=== PATIENT | male | born 1935 | race Caucasian/White ===

== ENCOUNTER 2017-07-11 14:51 | Inpatient (IN) | payer MEDICARE, MEDICAID ==
[~2017-07-11] VITALS: Ht 175.3 cm; Wt 81.6 kg
[~2017-07-11 14:51] MED LIST: FLOMAX0.4 MG ORAL; LEXAPRO10 MG ORAL; OMEPRAZOLE20 M2 ORAL; Piperacillin/Tazobactam 4.5 GM in NS 110 ML IV STA
[2017-07-11] MEDS ORDERED: NS 1000ml 2,600 ML IVLG ONE (15:00)
[2017-07-11] MEDS ORDERED: Tetanus/Diptheria/Pertussis Vaccine 0.5ml Syr IM ONE (15:00)
[2017-07-11] MEDS ORDERED: Acetaminophen 650 MG SUPP RECTAL ONE (15:00)
[2017-07-11] MEDS ORDERED: Vancomycin 1 GM in NS 275 ML IV ONE (15:00)
[2017-07-11 15:52] VITALS: BP 124/68
--- NOTE | 2017-07-11 15:56 | Emergency Room Report ---
History of Present Illness General Chief Complaint: Altered Level of Consciousness Source: EMS Present Illness HPI Patient was found altered on the streets. Paramedics brought him here. He has some myoclonic jerks. There is no seizure activity. He feels hot to the touch. The patient is unable to answer questions. Old records reviewed - HTN and onycholysis. He has scrapes. Unknown last tetanus. Allergies: Coded Allergies: PENICILLINS (Verified Allergy, Intermediate, Anaphylaxis, 07/12/17) Patient History Limited by: medical condition Past Medical History: see triage record, old chart reviewed Social History: Reports: alcohol use Social History Narrative from streets Reviewed Nursing Documentation: PMH: Agreed, PSxH: Agreed Nursing Documentation-PMH Past Medical History: Deferred Hx Cardiac Problems: No Hx Cancer: No Hx Gastrointestinal Problems: Yes Hx Neurological Problems: No Review of Systems All Other Systems: limited Physical Exam Vital Signs Date Time Temp Pulse Resp B/P (MAP) Pulse Ox O2 Delivery O2 Flow Rate FiO2 07/11/17 14:47 98.1 102 16 152/80 98 Room Air General Appearance: alert - but strange vocalizations, other - dishevelled Eyes: bilateral eye PERRL, bilateral eye Scleral Injection ENT: moist mucus membranes Neck: full range of motion, no bony tend Respiratory: chest non-tender, rhonchi Cardiovascular #1: regular rate, rhythm Cardiovascular #2: 2+ radial (L) Gastrointestinal: normal inspection, non tender, soft, abnormal bowel sounds - decreased Musculoskeletal: back normal, digits/nails normal, normal range of motion Neurologic: responsive, motor strength/tone normal, DTRs symmetric, sensory intact Psychiatric: other - not answering, not anxious but strange vocalization Reflexes: 2+ knee (R), 2+ knee (L) Skin: warm/dry, abrasions Medical Decision Making Diagnostic Impression: Primary Impression: Altered level of consciousness Additional Impressions: Sepsis Qualified Codes: A41.9 - Sepsis, unspecified organism Pneumonia Qualified Codes: J18.1 - Lobar pneumonia, unspecified organism ER Course Patient presents with ALOC and abrasions feeling hot and abnormal lung sounds. Ddx: pneumonia, sepsis, head contusion/bleed, ingestion, underlying psychopathy , electrolyte abnormality. Complex patient needing emergent evaluation with EKG , CXR, CT of head and labs. IV hydration initiated. EKG no LA. CXR with R infiltrate. Labs with normal WBC, some renal insufficiency. Antibiotics begun. CT unremarkable. Patient improved with treatment and observation, however needs admission to hospital for further evaluation and treatment. Admit tele Dr. Rucker. Laboratory Tests Test 07/11/17 15:25 07/11/17 15:35 07/12/17 08:35 White Blood Count 8.9 K/UL (4.8-10.8) 8.0 K/UL (4.8-10.8) Red Blood Count 5.28 M/UL (4.70-6.10) 4.93 M/UL (4.70-6.10) Hemoglobin 16.2 G/DL (14.2-18.0) 15.5 G/DL (14.2-18.0) Hematocrit 48.3 % (42.0-52.0) 45.0 % (42.0-52.0) Mean Corpuscular Volume 91 FL (80-99) 91 FL (80-99) Mean Corpuscular Hemoglobin 30.7 PG (27.0-31.0) 31.4 PG (27.0-31.0) H Mean Corpuscular Hemoglobin Concent 33.6 G/DL (32.0-36.0) 34.4 G/DL (32.0-36.0) Red Cell Distribution Width 12.6 % (11.6-14.8) 12.5 % (11.6-14.8) Platelet Count 212 K/UL (150-450) 186 K/UL (150-450) Mean Platelet Volume 4.8 FL (6.5-10.1) L 4.5 FL (6.5-10.1) L Neutrophils (%) (Auto) 79.0 % (45.0-75.0) H 71.8 % (45.0-75.0) Lymphocytes (%) (Auto) 15.4 % (20.0-45.0) L 21.8 % (20.0-45.0) Monocytes (%) (Auto) 4.5 % (1.0-10.0) 3.8 % (1.0-10.0) Eosinophils (%) (Auto) 0.2 % (0.0-3.0) 1.4 % (0.0-3.0) Basophils (%) (Auto) 1.0 % (0.0-2.0) 1.2 % (0.0-2.0) Prothrombin Time 10.7 SEC (9.30-11.50) 11.4 SEC (9.30-11.50) Prothrombin Time INR 1.0 (0.9-1.1) 1.1 (0.9-1.1) PTT 27 SEC (23-33) 28 SEC (23-33) Sodium Level 137 mEQ/L (135-145) 136 mEQ/L (135-145) Potassium Level 4.1 mEQ/L (3.4-4.9) 3.7 mEQ/L (3.4-4.9) Chloride Level 100 mEQ/L (98-107) 102 mEQ/L (98-107) Carbon Dioxide Level 24 mEQ/L (20-30) 25 mEQ/L (20-30) Anion Gap 13 (5-15) 9 (5-15) Blood Urea Nitrogen 24 mg/dL (7-23) H 18 mg/dL (7-23) Creatinine 1.2 mg/dL (0.7-1.2) 0.9 mg/dL (0.7-1.2) Estimate Glomerular Filtration Rate mL/min (>60) mL/min (>60) Glucose Level 119 mg/dL (74-106) H 89 mg/dL (74-106) Lactic Acid Level 1.60 mmol/L (0.66-2.22) Calcium Level 9.1 mg/dL (8.6-10.2) 8.0 mg/dL (8.6-10.2) L Magnesium Level 1.8 mg/dL (1.7-2.5) Total Bilirubin 1.3 mg/dL (0.0-1.2) H 1.4 mg/dL (0.0-1.2) H Direct Bilirubin 0.2 mg/dL (0.1-0.3) 0.2 mg/dL (0.1-0.3) Aspartate Amino Transferase (AST) 13 U/L (5-40) 16 U/L (5-40) Alanine Aminotransferase (ALT) 7 U/L (3-41) 6 U/L (3-41) Alkaline Phosphatase 45 U/L (40-129) 40 U/L (40-129) Total Creatine Kinase 119 U/L (38-174) Troponin I < 0.30 ng/mL (<=0.30) Pro-B-Type Natriuretic Peptide 247 pg/mL (0-450) Total Protein 7.1 g/dL (6.6-8.7) 5.9 g/dL (6.6-8.7) L Albumin 4.0 g/dL (3.5-5.2) 3.3 g/dL (3.5-5.2) L Globulin 3.1 g/dL 2.6 g/dL Albumin/Globulin Ratio 1.2 (1.0-2.7) 1.2 (1.0-2.7) Lipase 13 U/L (< 60) Urine Color Yellow Urine Appearance Clear Urine pH 6.5 (4.5-8.0) Urine Specific [place] 1.015 (1.005-1.035) Urine Protein 1+ (NEGATIVE) H Urine Glucose (UA) Negative (NEGATIVE) Urine Ketones 3+ (NEGATIVE) H Urine Occult Blood Negative (NEGATIVE) Urine Nitrite Negative (NEGATIVE) Urine Bilirubin Negative (NEGATIVE) Urine Urobilinogen 1 MG/DL (0.0-1.0) H Urine Leukocyte Esterase 1+ (NEGATIVE) H Urine RBC 0-2 /HPF (0 - 0) H Urine WBC 2-4 /HPF (0 - 0) Urine Squamous Epithelial Cells None /LPF (NONE/OCC) Urine Amorphous Sediment Few /LPF (NONE) H Urine Bacteria Few /HPF (NONE) Triglycerides Level 58 mg/dL (< 150) Cholesterol Level 127 mg/dL (< 200) LDL Cholesterol 78 mg/dL (60-99) HDL Cholesterol 37 mg/dL (> 60) Cholesterol/HDL Ratio 3.4 (3.3-4.4) Thyroid Stimulating Hormone (TSH) 0.572 uIU/mL (0.300-4.500) EKG Diagnostic Results Rate: tachycardiac Rhythm: NSR ST Segments: no acute changes Rhythm Strip Diag. Results EP Interpretation: yes Rhythm: no PVC's, no ectopy, other - ST Chest X-Ray Diagnostic Results Chest X-Ray Diagnostic Results : Chest X-Ray Ordered: Yes # of Views/Limited/Complete: 1 View Indication: Other EP Interpretation: Yes Interpretation: no effusion, no pneumothorax, other - bilat infiltrates Status: improved Disposition: ADMITTED INPATIENT Condition: Serious Khalif Burkett M.D. Jul 11, 2017 15:56
[2017-07-11 15:57] LABS: EOSINOPHILS % (AUTO) 0.2 % (0.0-3.0); LYMPHOCYTES % (AUTO) 15.4 % (20.0-45.0); MEAN CORPUSCULAR HEMOGLOBIN 30.7 PG (27.0-31.0); MEAN CORPUSCULAR HGB CONC 33.6 G/DL (32.0-36.0); MEAN CORPUSCULAR VOLUME 91 FL (80-99); MEAN PLATELET VOLUME 4.8 FL (6.5-10.1); MONOCYTES % (AUTO) 4.5 % (1.0-10.0); PLATELET COUNT 212 K/UL (150-450); RED BLOOD COUNT 5.28 M/UL (4.70-6.10); RED CELL DISTRIBUTION WIDTH 12.6 % (11.6-14.8); WHITE BLOOD COUNT 8.9 K/UL (4.8-10.8)
[2017-07-11 15:58] LABS: APPEARANCE,URINE CLEAR; KETONES,URINE 3+ (NEGATIVE); LEUKOCYTE ESTERASE ,URINE 1+ (NEGATIVE); NITRITE,URINE NEGATIVE (NEGATIVE); PH,URINE 6.5 (4.5-8.0); PROTEIN,URINE 1+ (NEGATIVE); UROBILINOGEN,URINE 1 MG/DL (0.0-1.0)
[2017-07-11 16:02] LABS: PROTHROMBIN TIME 10.7 SEC (9.30-11.50)
[2017-07-11 16:07] LABS: ALANINE AMINOTRANSFERASE 7 U/L (3-41); ALBUMIN/GLOBULIN RATIO 1.2 (1.0-2.7); ANION GAP 13 (5-15); ASPARTATE AMINO TRANSFERASE 13 U/L (5-40); CALCIUM 9.1 mg/dL (8.6-10.2); CARBON DIOXIDE 24 mEQ/L (20-30); CHLORIDE 100 mEQ/L (98-107); CREATININE 1.2 mg/dL (0.7-1.2); HEMOLYSIS 13; LIPASE 13 U/L (< 60); MAGNESIUM 1.8 mg/dL (1.7-2.5); POTASSIUM 4.1 mEQ/L (3.4-4.9); SODIUM 137 mEQ/L (135-145); TOTAL PROTEIN 7.1 g/dL (6.6-8.7); TROPONIN I < 0.30 ng/mL (<=0.30)
[2017-07-11 16:15] LABS: AMORPHOUS SEDIMENT,UR FEW /LPF; BACTERIA,URINE FEW /HPF; RBC,URINE 0-2 /HPF (0 - 0)
[2017-07-11 16:28] LABS: BILIRUBIN,DIRECT 0.2 mg/dL (0.1-0.3)
[2017-07-11] MEDS ORDERED: Zosyn 4.5gm inj ONE (17:14)
[2017-07-11] MEDS ORDERED: NKM (17:34)
[2017-07-11] MEDS ORDERED: Nitroglycerin Subl 0.4mg tab (Bottle Of 25) SL PRN (17:45)
[2017-07-11] MEDS ORDERED: Mylanta II UD 30ml ORAL PRN (17:45)
[2017-07-11] MEDS ORDERED: LORazepam Inj 2mg/ml 1ml IV PRN (17:45)
[2017-07-11] MEDS ORDERED: Miralax 17gm pkt ORAL PRN (17:45)
[2017-07-11] MEDS ORDERED: DuoNeb 0.5-3(2.5)mg/3ml neb HHN PRN (17:45)
[2017-07-11] MEDS ORDERED: Morphine Sulfate 2mg/ml Inj IVP PRN (17:45)
[2017-07-11] MEDS ORDERED: Vancomycin 1gm inj IVPB ONE (19:43)
[2017-07-11 20:14] VITALS: BP 103/54
[2017-07-11 22:13] VITALS: BP 107/62
[2017-07-11] MEDS: Heparin 5000 units/ml inj SUBQ SCH (22:46)
[2017-07-12 00:05] VITALS: BP_SYST 101; BP_SYST 116; BP_DIAS 60; BP_DIAS 69
[2017-07-12 04:00] VITALS: BP 113/67
[2017-07-12 08:48] VITALS: BP 117/75
[2017-07-12] MEDS: Tamsulosin 0.4mg cap ORAL SCH (09:07)
[2017-07-12] MEDS: Heparin 5000 units/ml inj SUBQ SCH ×2 (09:10→20:58)
[2017-07-12 09:23] LABS: BASOPHILS % (AUTO) 1.2 % (0.0-2.0); EOSINOPHILS % (AUTO) 1.4 % (0.0-3.0); LYMPHOCYTES % (AUTO) 21.8 % (20.0-45.0); MEAN CORPUSCULAR HEMOGLOBIN 31.4 PG (27.0-31.0); MEAN CORPUSCULAR HGB CONC 34.4 G/DL (32.0-36.0); MEAN CORPUSCULAR VOLUME 91 FL (80-99); MEAN PLATELET VOLUME 4.5 FL (6.5-10.1); MONOCYTES % (AUTO) 3.8 % (1.0-10.0); NEUTROPHILS % (AUTO) 71.8 % (45.0-75.0); PLATELET COUNT 186 K/UL (150-450); RED BLOOD COUNT 4.93 M/UL (4.70-6.10); RED CELL DISTRIBUTION WIDTH 12.5 % (11.6-14.8)
[2017-07-12 09:28] LABS: INR 1.1 (0.9-1.1); PROTHROMBIN TIME 11.4 SEC (9.30-11.50)
[2017-07-12 09:39] LABS: ALANINE AMINOTRANSFERASE 6 U/L (3-41); ALBUMIN/GLOBULIN RATIO 1.2 (1.0-2.7); ANION GAP 9 (5-15); ASPARTATE AMINO TRANSFERASE 16 U/L (5-40); CARBON DIOXIDE 25 mEQ/L (20-30); CHLORIDE 102 mEQ/L (98-107); CHOLESTEROL 127 mg/dL (< 200); CHOLESTEROL/HDL RATIO 3.4 (3.3-4.4); CREATININE 0.9 mg/dL (0.7-1.2); HEMOLYSIS 6; LDL CHOLESTEROL (CALC.) 78 mg/dL (60-99); POTASSIUM 3.7 mEQ/L (3.4-4.9); SODIUM 136 mEQ/L (135-145); TOTAL PROTEIN 5.9 g/dL (6.6-8.7)
[2017-07-12 09:45] LABS: THYROID STIMULATING HORMONE 0.572 uIU/mL (0.300-4.500)
[2017-07-12 09:56] LABS: BILIRUBIN,DIRECT 0.2 mg/dL (0.1-0.3)
--- NOTE | 2017-07-12 10:53 | Diagnostic Imaging Report ---
Indication: Altered level of consciousness Technique: Contiguous 5 mm thick transaxial imaging of the head obtained in a Siemens Sensation [address] scanner. Soft tissue and bone windows generated. Total Dose length Product (DLP): [address] Dose Index Volume (CTDIvol): 70.38, 0.15 mGy Comparison: 12/14/11 Findings: There is mild prominence of the ventricles, basal cisterns, and cerebral sulci consistent with atrophy. Mild, nonspecific, white matter hypoattenuation is noted throughout the brain consistent with chronic small vessel disease. There is no midline shift, edema, acute hemorrhage, mass effect, or abnormal extra-axial fluid collections. Bones and extra osseous soft tissues are unremarkable. Impression: No acute intracranial bleed, mass effect or edema. Mild atrophy of the brain. Nonspecific white matter hypoattenuation probably due to chronic small vessel disease. The CT scanner at [facility] is accredited by the [employer] and the scans are performed using dose optimization techniques as appropriate to a performed exam including Automatic Exposure control.
--- NOTE | 2017-07-12 11:35 | Diagnostic Imaging Report ---
Indication: Dyspnea Comparison: 09/04/15 A single view chest radiograph was obtained. Findings: Heart size is stable. Interstitium of the lung is slightly prominent. Some of this is technical in nature. Bones are osteopenic. Impression: Mild interstitial edema may be present
[2017-07-12 11:54] VITALS: BP 110/54
--- NOTE | 2017-07-12 12:20 | History and Physical ---
History of Present Illness General Date patient seen: Jul 11, 2017 Reason for Hospitalization: Altered Level of Consciousness Present Illness HPI 82 year old male with hx of BPH, depression was found altered on the streets with some myoclonic jerks. The patient is unable to answer questions. The CT of head was negative in ER. He was admitted to telemetry for further work up. Allergies: Coded Allergies: UNABLE TO ASSESS (Unverified , 07/11/17) Uncoded Allergies: PENICILLIN INJECTION (Allergy, Severe, 09/27/13) ANAPHYLACTIC SHOCK Medication History Scheduled Escitalopram Oxalate* (Lexapro*), 5 MG ORAL DAILY, (Reported) No Known Medications* (NKM - No Known Medications*), 0 ., (Reported) Omeprazole (Omeprazole), 20 MG ORAL DAILY, (Reported) Tamsulosin HCl (Flomax), 0.4 MG ORAL DAILY, (Reported) Patient History Healthcare decision maker Resuscitation status Full Code Advanced Directive on File No Past Medical/Surgical History Past Medical/Surgical History: (1) BPH (benign prostatic hyperplasia) (2) Depression (3) ETOH abuse Review of Systems All Other Systems: negative except mentioned in HPI Physical Exam General Appearance: WD/WN Lines, tubes and drains: peripheral HEENT: normocephalic, atraumatic Neck: non-tender, normal alignment Respiratory/Chest: chest wall non-tender, lungs clear Breasts: no masses Cardiovascular/Chest: normal rate Abdomen: normal bowel sounds, non tender Genitourinary/Rectal: normal genital exam, normal rectal exam Extremities: normal range of motion, non-tender Skin Exam: normal pigmentation Last 24 Hour Vital Signs Date Time Temp Pulse Resp B/P (MAP) Pulse Ox O2 Delivery O2 Flow Rate FiO2 07/12/17 11:54 97.0 71 18 110/54 96 Room Air 07/12/17 08:48 97.0 63 18 117/75 95 Room Air 07/12/17 07:49 68 18 Room Air 07/12/17 04:00 67 07/12/17 04:00 98.1 71 20 113/67 99 Room Air 07/12/17 00:34 67 18 Room Air 07/12/17 00:05 97.0 77 20 101/60 94 Room Air 07/12/17 00:00 72 07/11/17 22:13 98.0 69 20 107/62 95 Room Air 07/11/17 20:44 97.6 72 16 103/54 93 Room Air 07/11/17 20:14 97.6 72 16 103/54 93 Room Air 07/11/17 15:52 98.3 98 23 124/68 92 Room Air 07/11/17 14:47 98.1 102 16 152/80 98 Room Air Laboratory Tests Test 07/11/17 15:25 07/11/17 15:35 07/12/17 08:35 White Blood Count 8.9 K/UL (4.8-10.8) 8.0 K/UL (4.8-10.8) Red Blood Count 5.28 M/UL (4.70-6.10) 4.93 M/UL (4.70-6.10) Hemoglobin 16.2 G/DL (14.2-18.0) 15.5 G/DL (14.2-18.0) Hematocrit 48.3 % (42.0-52.0) 45.0 % (42.0-52.0) Mean Corpuscular Volume 91 FL (80-99) 91 FL (80-99) Mean Corpuscular Hemoglobin 30.7 PG (27.0-31.0) 31.4 PG (27.0-31.0) H Mean Corpuscular Hemoglobin Concent 33.6 G/DL (32.0-36.0) 34.4 G/DL (32.0-36.0) Red Cell Distribution Width 12.6 % (11.6-14.8) 12.5 % (11.6-14.8) Platelet Count 212 K/UL (150-450) 186 K/UL (150-450) Mean Platelet Volume 4.8 FL (6.5-10.1) L 4.5 FL (6.5-10.1) L Neutrophils (%) (Auto) 79.0 % (45.0-75.0) H 71.8 % (45.0-75.0) Lymphocytes (%) (Auto) 15.4 % (20.0-45.0) L 21.8 % (20.0-45.0) Monocytes (%) (Auto) 4.5 % (1.0-10.0) 3.8 % (1.0-10.0) Eosinophils (%) (Auto) 0.2 % (0.0-3.0) 1.4 % (0.0-3.0) Basophils (%) (Auto) 1.0 % (0.0-2.0) 1.2 % (0.0-2.0) Prothrombin Time 10.7 SEC (9.30-11.50) 11.4 SEC (9.30-11.50) Prothromb Time International Ratio 1.0 (0.9-1.1) 1.1 (0.9-1.1) Activated Partial Thromboplast Time 27 SEC (23-33) 28 SEC (23-33) Sodium Level 137 mEQ/L (135-145) 136 mEQ/L (135-145) Potassium Level 4.1 mEQ/L (3.4-4.9) 3.7 mEQ/L (3.4-4.9) Chloride Level 100 mEQ/L (98-107) 102 mEQ/L (98-107) Carbon Dioxide Level 24 mEQ/L (20-30) 25 mEQ/L (20-30) Anion Gap 13 (5-15) 9 (5-15) Blood Urea Nitrogen 24 mg/dL (7-23) H 18 mg/dL (7-23) Creatinine 1.2 mg/dL (0.7-1.2) 0.9 mg/dL (0.7-1.2) Estimat Glomerular Filtration Rate mL/min (>60) mL/min (>60) Glucose Level 119 mg/dL (74-106) H 89 mg/dL (74-106) Lactic Acid Level 1.60 mmol/L (0.66-2.22) Calcium Level 9.1 mg/dL (8.6-10.2) 8.0 mg/dL (8.6-10.2) L Magnesium Level 1.8 mg/dL (1.7-2.5) Total Bilirubin 1.3 mg/dL (0.0-1.2) H 1.4 mg/dL (0.0-1.2) H Direct Bilirubin 0.2 mg/dL (0.1-0.3) 0.2 mg/dL (0.1-0.3) Aspartate Amino Transf (AST/SGOT) 13 U/L (5-40) 16 U/L (5-40) Alanine Aminotransferase (ALT/SGPT) 7 U/L (3-41) 6 U/L (3-41) Alkaline Phosphatase 45 U/L (40-129) 40 U/L (40-129) Total Creatine Kinase 119 U/L (38-174) Troponin I < 0.30 ng/mL (<=0.30) Pro-B-Type Natriuretic Peptide 247 pg/mL (0-450) Total Protein 7.1 g/dL (6.6-8.7) 5.9 g/dL (6.6-8.7) L Albumin 4.0 g/dL (3.5-5.2) 3.3 g/dL (3.5-5.2) L Globulin 3.1 g/dL 2.6 g/dL Albumin/Globulin Ratio 1.2 (1.0-2.7) 1.2 (1.0-2.7) Lipase 13 U/L (< 60) Urine Color Yellow Urine Appearance Clear Urine pH 6.5 (4.5-8.0) Urine Specific [place] 1.015 (1.005-1.035) Urine Protein 1+ (NEGATIVE) H Urine Glucose (UA) Negative (NEGATIVE) Urine Ketones 3+ (NEGATIVE) H Urine Occult Blood Negative (NEGATIVE) Urine Nitrite Negative (NEGATIVE) Urine Bilirubin Negative (NEGATIVE) Urine Urobilinogen 1 MG/DL (0.0-1.0) H Urine Leukocyte Esterase 1+ (NEGATIVE) H Urine RBC 0-2 /HPF (0 - 0) H Urine WBC 2-4 /HPF (0 - 0) Urine Squamous Epithelial Cells None /LPF (NONE/OCC) Urine Amorphous Sediment Few /LPF (NONE) H Urine Bacteria Few /HPF (NONE) Triglycerides Level 58 mg/dL (< 150) Cholesterol Level 127 mg/dL (< 200) LDL Cholesterol 78 mg/dL (60-99) HDL Cholesterol 37 mg/dL (> 60) Cholesterol/HDL Ratio 3.4 (3.3-4.4) Thyroid Stimulating Hormone (TSH) 0.572 uIU/mL (0.300-4.500) Height (Feet): 5 Height (Inches): 9.00 Weight (Pounds): 180 Medications Current Medications Medications (Trade) Dose Ordered Sig/Percy Route PRN Reason Start Time Stop Time Status Last Admin Dose Admin Acetaminophen (Tylenol) 650 mg Q4H PRN ORAL fever 07/11/17 17:45 08/10/17 17:44 Al Hydroxide/Mg Hydroxide (Mylanta II) 30 ml Q6H PRN ORAL dyspepsia 07/11/17 17:45 08/10/17 17:44 Albuterol/ Ipratropium (DuoNeb 0.5-3(2.5)mg/3ml) 3 ml Q4H PRN HHN Shortness of Breath 07/11/17 17:45 07/16/17 17:44 Clonidine HCl (Catapres) 0.1 mg Q4H PRN ORAL For High Blood Pressure 07/11/17 17:45 08/10/17 17:44 Dextrose (Dextrose 50%) STAT PRN IV Hypoglycemia 07/11/17 17:45 08/10/17 17:44 Escitalopram Oxalate (Lexapro) 5 mg DAILY ORAL 07/12/17 09:00 08/11/17 08:59 07/12/17 09:07 Heparin Sodium (Porcine) (Heparin 5000 units/ml) 5,000 units EVERY 12 HOURS SUBQ 07/11/17 21:00 08/10/17 20:59 07/12/17 09:10 Lorazepam (Ativan 2mg/ml 1ml) 0.5 mg Q4H PRN IV For Anxiety 07/11/17 17:45 07/18/17 17:44 Morphine Sulfate (Morphine Sulfate) 1 mg Q4H PRN IVP For Pain 7-10 07/11/17 17:45 07/18/17 17:44 Nitroglycerin (Ntg) 0.4 mg Q5M X 3 DOSES PRN SL Prn Chest Pain 07/11/17 17:45 08/10/17 17:44 Ondansetron HCl (Zofran) 4 mg Q6H PRN IVP Nausea & Vomiting 07/11/17 17:45 08/10/17 17:44 Polyethylene Glycol (Miralax) 17 gm HSPRN PRN ORAL Constipation 07/11/17 17:45 08/10/17 17:44 Tamsulosin HCl (Flomax) 0.4 mg DAILY ORAL 07/12/17 09:00 08/11/17 08:59 07/12/17 09:07 Temazepam (Restoril) 15 mg HSPRN PRN ORAL Insomnia 07/11/17 17:45 07/18/17 17:44 Assessment/Plan Problem List: (1) Acute encephalopathy ICD Codes: G93.40 - Encephalopathy, unspecified SNOMED: 3568786 (2) Depression ICD Codes: F32.9 - Major depressive disorder, single episode, unspecified SNOMED: 99522549 (3) BPH (benign prostatic hyperplasia) ICD Codes: N40.0 - Benign prostatic hyperplasia without lower urinary tract symptoms SNOMED: 737059204, 989900133 (4) ETOH abuse ICD Codes: F10.10 - Alcohol abuse, uncomplicated SNOMED: 92900908 Assessment/Plan telemetry admission neuro evaluation psych evaluation toxicology screening cardiac evaluation MONTSE SCHWARZ Jul 12, 2017 12:20
--- NOTE | 2017-07-12 12:24 | Pulmonology Progress Note ---
Assessment/Plan Problems: (1) Acute encephalopathy (2) Depression (3) BPH (benign prostatic hyperplasia) (4) ETOH abuse Assessment/Plan doing better more awake awaiting echo and doppler of carotid artery drug screen Subjective ROS Limited/Unobtainable: No Constitutional: Reports: no symptoms HEENT: Repors: no symptoms Respiratory: Reports: no symptoms Cardiovascular: Reports: no symptoms Gastrointestinal/Abdominal: Reports: no symptoms Allergies: Coded Allergies: UNABLE TO ASSESS (Unverified , 07/11/17) Uncoded Allergies: PENICILLIN INJECTION (Allergy, Severe, 09/27/13) ANAPHYLACTIC SHOCK Objective Last 24 Hour Vital Signs Date Time Temp Pulse Resp B/P (MAP) Pulse Ox O2 Delivery O2 Flow Rate FiO2 07/12/17 11:54 97.0 71 18 110/54 96 Room Air 07/12/17 08:48 97.0 63 18 117/75 95 Room Air 07/12/17 07:49 68 18 Room Air 07/12/17 04:00 67 07/12/17 04:00 98.1 71 20 113/67 99 Room Air 07/12/17 00:34 67 18 Room Air 07/12/17 00:05 97.0 77 20 101/60 94 Room Air 07/12/17 00:00 72 07/11/17 22:13 98.0 69 20 107/62 95 Room Air 07/11/17 20:44 97.6 72 16 103/54 93 Room Air 07/11/17 20:14 97.6 72 16 103/54 93 Room Air 07/11/17 15:52 98.3 98 23 124/68 92 Room Air 07/11/17 14:47 98.1 102 16 152/80 98 Room Air General Appearance: WD/WN HEENT: normocephalic, atraumatic Respiratory/Chest: chest wall non-tender, lungs clear, normal breath sounds Cardiovascular: normal peripheral pulses, normal rate Abdomen: normal bowel sounds, soft, non tender, no organomegaly Genitourinary: normal external genitalia Skin: no rash Neurologic/Psychiatric: no motor/sensory deficits, abnormal gait, normal mood/ affect Lymphatic: no groin adenopathy Musculoskeletal: normal muscle bulk Laboratory Tests 07/11/17 15:25: White Blood Count 8.9, Red Blood Count 5.28, Hemoglobin 16.2, Hematocrit 48.3, Mean Corpuscular Volume 91, Mean Corpuscular Hemoglobin 30.7, Mean Corpuscular Hemoglobin Concent 33.6, Red Cell Distribution Width 12.6, Platelet Count 212, Mean Platelet Volume 4.8L, Neutrophils (%) (Auto) 79.0H, Lymphocytes (%) (Auto) 15.4L, Monocytes (%) (Auto) 4.5, Eosinophils (%) (Auto) 0.2, Basophils (%) (Auto ) 1.0, Prothrombin Time 10.7, Prothromb Time International Ratio 1.0, Activated Partial Thromboplast Time 27, Sodium Level 137, Potassium Level 4.1, Chloride Level 100, Carbon Dioxide Level 24, Anion Gap 13, Blood Urea Nitrogen 24H, Creatinine 1.2, Estimat Glomerular Filtration Rate , Glucose Level 119H, Lactic Acid Level 1.60, Calcium Level 9.1, Magnesium Level 1.8, Total Bilirubin 1.3H, Direct Bilirubin 0.2, Aspartate Amino Transf (AST/SGOT) 13, Alanine Aminotransferase (ALT/SGPT) 7, Alkaline Phosphatase 45, Total Creatine Kinase 119, Troponin I < 0.30, Pro-B-Type Natriuretic Peptide 247, Total Protein 7.1, Albumin 4.0, Globulin 3.1, Albumin/Globulin Ratio 1.2, Lipase 13 07/11/17 15:35: Urine Color Yellow, Urine Appearance Clear, Urine pH 6.5, Urine Specific [place] 1.015, Urine Protein 1+H, Urine Glucose (UA) Negative, Urine Ketones 3+H , Urine Occult Blood Negative, Urine Nitrite Negative, Urine Bilirubin Negative , Urine Urobilinogen 1H, Urine Leukocyte Esterase 1+H, Urine RBC 0-2H, Urine WBC 2-4, Urine Squamous Epithelial Cells None, Urine Amorphous Sediment FewH, Urine Bacteria Few 07/12/17 08:35: White Blood Count 8.0, Red Blood Count 4.93, Hemoglobin 15.5, Hematocrit 45.0, Mean Corpuscular Volume 91, Mean Corpuscular Hemoglobin 31.4H, Mean Corpuscular Hemoglobin Concent 34.4, Red Cell Distribution Width 12.5, Platelet Count 186, Mean Platelet Volume 4.5L, Neutrophils (%) (Auto) 71.8, Lymphocytes (%) (Auto) 21.8, Monocytes (%) (Auto) 3.8, Eosinophils (%) (Auto) 1.4, Basophils (%) (Auto ) 1.2, Prothrombin Time 11.4, Prothromb Time International Ratio 1.1, Activated Partial Thromboplast Time 28, Sodium Level 136, Potassium Level 3.7, Chloride Level 102, Carbon Dioxide Level 25, Anion Gap 9, Blood Urea Nitrogen 18, Creatinine 0.9, Estimat Glomerular Filtration Rate , Glucose Level 89, Calcium Level 8.0L, Total Bilirubin 1.4H, Direct Bilirubin 0.2, Aspartate Amino Transf ( AST/SGOT) 16, Alanine Aminotransferase (ALT/SGPT) 6, Alkaline Phosphatase 40, Total Protein 5.9L, Albumin 3.3L, Globulin 2.6, Albumin/Globulin Ratio 1.2, Triglycerides Level 58, Cholesterol Level 127, LDL Cholesterol 78, HDL Cholesterol 37, Cholesterol/HDL Ratio 3.4, Thyroid Stimulating Hormone (TSH) 0.572 Current Medications Medications (Trade) Dose Ordered Sig/Percy Route PRN Reason Start Time Stop Time Status Last Admin Dose Admin Acetaminophen (Tylenol) 650 mg Q4H PRN ORAL fever 07/11/17 17:45 08/10/17 17:44 Al Hydroxide/Mg Hydroxide (Mylanta II) 30 ml Q6H PRN ORAL dyspepsia 07/11/17 17:45 08/10/17 17:44 Albuterol/ Ipratropium (DuoNeb 0.5-3(2.5)mg/3ml) 3 ml Q4H PRN HHN Shortness of Breath 07/11/17 17:45 07/16/17 17:44 Clonidine HCl (Catapres) 0.1 mg Q4H PRN ORAL For High Blood Pressure 07/11/17 17:45 08/10/17 17:44 Dextrose (Dextrose 50%) STAT PRN IV Hypoglycemia 07/11/17 17:45 08/10/17 17:44 Escitalopram Oxalate (Lexapro) 5 mg DAILY ORAL 07/12/17 09:00 08/11/17 08:59 07/12/17 09:07 Heparin Sodium (Porcine) (Heparin 5000 units/ml) 5,000 units EVERY 12 HOURS SUBQ 07/11/17 21:00 08/10/17 20:59 07/12/17 09:10 Lorazepam (Ativan 2mg/ml 1ml) 0.5 mg Q4H PRN IV For Anxiety 07/11/17 17:45 07/18/17 17:44 Morphine Sulfate (Morphine Sulfate) 1 mg Q4H PRN IVP For Pain 7-10 07/11/17 17:45 07/18/17 17:44 Nitroglycerin (Ntg) 0.4 mg Q5M X 3 DOSES PRN SL Prn Chest Pain 07/11/17 17:45 08/10/17 17:44 Ondansetron HCl (Zofran) 4 mg Q6H PRN IVP Nausea & Vomiting 07/11/17 17:45 08/10/17 17:44 Polyethylene Glycol (Miralax) 17 gm HSPRN PRN ORAL Constipation 07/11/17 17:45 08/10/17 17:44 Tamsulosin HCl (Flomax) 0.4 mg DAILY ORAL 07/12/17 09:00 08/11/17 08:59 07/12/17 09:07 Temazepam (Restoril) 15 mg HSPRN PRN ORAL Insomnia 07/11/17 17:45 07/18/17 17:44 MONTSE SCHWARZ Jul 12, 2017 12:24
[2017-07-12 15:47] VITALS: BP 103/56
--- NOTE | 2017-07-12 16:32 | Consultation ---
History of Present Illness General Date patient seen: Jul 11, 2017 Chief Complaint: Altered Level of Consciousness Present Illness HPI 82 year old male with hx of BPH, depression was found altered on the streets with some myoclonic. the pt was alert however confused and was unable to provide hx. 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 Allergies: Coded Allergies: PENICILLINS (Verified Allergy, Intermediate, Anaphylaxis, 07/12/17) Medication History Scheduled Escitalopram Oxalate* (Lexapro*), 5 MG ORAL DAILY, (Reported) No Known Medications* (NKM - No Known Medications*), 0 ., (Reported) Omeprazole (Omeprazole), 20 MG ORAL DAILY, (Reported) Tamsulosin HCl (Flomax), 0.4 MG ORAL DAILY, (Reported) Patient History History Provided By: Patient, Medical Record, PMD Healthcare decision maker Resuscitation status Full Code Advanced Directive on File No Past Medical/Surgical History Past Medical/Surgical History: (1) Pneumonia (2) Sepsis (3) Depression (4) BPH (benign prostatic hyperplasia) (5) Altered level of consciousness (6) Acute encephalopathy Review of Systems Psychiatric: Reports: prior hx, anxiety, depressed feelings, emotional problems Physical Exam General Appearance: no apparent distress, alert, confused, thin Neurologic: alert, responsive, depressed affect Last 24 Hour Vital Signs Date Time Temp Pulse Resp B/P (MAP) Pulse Ox O2 Delivery O2 Flow Rate FiO2 07/12/17 15:47 97.2 65 18 103/56 98 Room Air 07/12/17 12:00 75 07/12/17 11:54 97.0 71 18 110/54 96 Room Air 07/12/17 08:48 97.0 63 18 117/75 95 Room Air 07/12/17 07:49 68 18 Room Air 07/12/17 04:00 67 07/12/17 04:00 98.1 71 20 113/67 99 Room Air 07/12/17 00:34 67 18 Room Air 07/12/17 00:05 97.0 77 20 101/60 94 Room Air 07/12/17 00:00 72 07/11/17 22:13 98.0 69 20 107/62 95 Room Air 07/11/17 20:44 97.6 72 16 103/54 93 Room Air 07/11/17 20:14 97.6 72 16 103/54 93 Room Air Intake and Output 07/12/17 07/13/17 19:00 07:00 Intake Total 240 ml Balance 240 ml Intake Oral 240 ml # Voids 2 Laboratory Tests Test 07/12/17 08:35 White Blood Count 8.0 K/UL (4.8-10.8) Red Blood Count 4.93 M/UL (4.70-6.10) Hemoglobin 15.5 G/DL (14.2-18.0) Hematocrit 45.0 % (42.0-52.0) Mean Corpuscular Volume 91 FL (80-99) Mean Corpuscular Hemoglobin 31.4 PG (27.0-31.0) H Mean Corpuscular Hemoglobin Concent 34.4 G/DL (32.0-36.0) Red Cell Distribution Width 12.5 % (11.6-14.8) Platelet Count 186 K/UL (150-450) Mean Platelet Volume 4.5 FL (6.5-10.1) L Neutrophils (%) (Auto) 71.8 % (45.0-75.0) Lymphocytes (%) (Auto) 21.8 % (20.0-45.0) Monocytes (%) (Auto) 3.8 % (1.0-10.0) Eosinophils (%) (Auto) 1.4 % (0.0-3.0) Basophils (%) (Auto) 1.2 % (0.0-2.0) Prothrombin Time 11.4 SEC (9.30-11.50) Prothromb Time International Ratio 1.1 (0.9-1.1) Activated Partial Thromboplast Time 28 SEC (23-33) Sodium Level 136 mEQ/L (135-145) Potassium Level 3.7 mEQ/L (3.4-4.9) Chloride Level 102 mEQ/L (98-107) Carbon Dioxide Level 25 mEQ/L (20-30) Anion Gap 9 (5-15) Blood Urea Nitrogen 18 mg/dL (7-23) Creatinine 0.9 mg/dL (0.7-1.2) Estimat Glomerular Filtration Rate mL/min (>60) Glucose Level 89 mg/dL (74-106) Calcium Level 8.0 mg/dL (8.6-10.2) L Total Bilirubin 1.4 mg/dL (0.0-1.2) H Direct Bilirubin 0.2 mg/dL (0.1-0.3) Aspartate Amino Transf (AST/SGOT) 16 U/L (5-40) Alanine Aminotransferase (ALT/SGPT) 6 U/L (3-41) Alkaline Phosphatase 40 U/L (40-129) Total Protein 5.9 g/dL (6.6-8.7) L Albumin 3.3 g/dL (3.5-5.2) L Globulin 2.6 g/dL Albumin/Globulin Ratio 1.2 (1.0-2.7) Triglycerides Level 58 mg/dL (< 150) Cholesterol Level 127 mg/dL (< 200) LDL Cholesterol 78 mg/dL (60-99) HDL Cholesterol 37 mg/dL (> 60) Cholesterol/HDL Ratio 3.4 (3.3-4.4) Thyroid Stimulating Hormone (TSH) 0.572 uIU/mL (0.300-4.500) Height (Feet): 5 Height (Inches): 9.00 Weight (Pounds): 180 Medications Current Medications Medications (Trade) Dose Ordered Sig/Percy Route PRN Reason Start Time Stop Time Status Last Admin Dose Admin Acetaminophen (Tylenol) 650 mg Q4H PRN ORAL fever 07/11/17 17:45 08/10/17 17:44 Al Hydroxide/Mg Hydroxide (Mylanta II) 30 ml Q6H PRN ORAL dyspepsia 07/11/17 17:45 08/10/17 17:44 Albuterol/ Ipratropium (DuoNeb 0.5-3(2.5)mg/3ml) 3 ml Q4H PRN HHN Shortness of Breath 07/11/17 17:45 07/16/17 17:44 Clonidine HCl (Catapres) 0.1 mg Q4H PRN ORAL For High Blood Pressure 07/11/17 17:45 08/10/17 17:44 Dextrose (Dextrose 50%) STAT PRN IV Hypoglycemia 07/11/17 17:45 08/10/17 17:44 Escitalopram Oxalate (Lexapro) 5 mg DAILY ORAL 07/12/17 09:00 08/11/17 08:59 07/12/17 09:07 Heparin Sodium (Porcine) (Heparin 5000 units/ml) 5,000 units EVERY 12 HOURS SUBQ 9/4/17 21:00 08/10/17 20:59 07/12/17 09:10 Lorazepam (Ativan 2mg/ml 1ml) 0.5 mg Q4H PRN IV For Anxiety 07/11/17 17:45 07/18/17 17:44 Morphine Sulfate (Morphine Sulfate) 1 mg Q4H PRN IVP For Pain 7-10 07/11/17 17:45 07/18/17 17:44 Nitroglycerin (Ntg) 0.4 mg Q5M X 3 DOSES PRN SL Prn Chest Pain 07/11/17 17:45 08/10/17 17:44 Ondansetron HCl (Zofran) 4 mg Q6H PRN IVP Nausea & Vomiting 07/11/17 17:45 08/10/17 17:44 Polyethylene Glycol (Miralax) 17 gm HSPRN PRN ORAL Constipation 07/11/17 17:45 08/10/17 17:44 Tamsulosin HCl (Flomax) 0.4 mg DAILY ORAL 07/12/17 09:00 08/11/17 08:59 07/12/17 09:07 Temazepam (Restoril) 15 mg HSPRN PRN ORAL Insomnia 07/11/17 17:45 07/18/17 17:44 Assessment/Plan Status: stable, progressing Assessment/Plan mdd, hx of alcohol? r/o delirium -lexapro 10mg Claudia Regalado M.D. Jul 12, 2017 16:32
--- NOTE | 2017-07-12 16:40 | Geriatric Progress Note ---
Assessment/Plan Assessment/Plan mdd, dementia -lexapro 10mg qam Subjective Mood/Memory: Reports: prior hx, anxiety, depressed feelings, emotional problems Geriatric Geriatric Last 24 Hour Vital Signs Date Time Temp Pulse Resp B/P (MAP) Pulse Ox O2 Delivery O2 Flow Rate FiO2 07/12/17 15:47 97.2 65 18 103/56 98 Room Air 07/12/17 12:00 75 07/12/17 11:54 97.0 71 18 110/54 96 Room Air 07/12/17 08:48 97.0 63 18 117/75 95 Room Air 07/12/17 07:49 68 18 Room Air 07/12/17 04:00 67 07/12/17 04:00 98.1 71 20 113/67 99 Room Air 07/12/17 00:34 67 18 Room Air 07/12/17 00:05 97.0 77 20 101/60 94 Room Air 07/12/17 00:00 72 07/11/17 22:13 98.0 69 20 107/62 95 Room Air 07/11/17 20:44 97.6 72 16 103/54 93 Room Air 07/11/17 20:14 97.6 72 16 103/54 93 Room Air Intake and Output 07/12/17 07/13/17 19:00 07:00 Intake Total 240 ml Balance 240 ml Intake Oral 240 ml # Voids 2 Laboratory Tests Test 07/12/17 08:35 White Blood Count 8.0 K/UL (4.8-10.8) Red Blood Count 4.93 M/UL (4.70-6.10) Hemoglobin 15.5 G/DL (14.2-18.0) Hematocrit 45.0 % (42.0-52.0) Mean Corpuscular Volume 91 FL (80-99) Mean Corpuscular Hemoglobin 31.4 PG (27.0-31.0) H Mean Corpuscular Hemoglobin Concent 34.4 G/DL (32.0-36.0) Red Cell Distribution Width 12.5 % (11.6-14.8) Platelet Count 186 K/UL (150-450) Mean Platelet Volume 4.5 FL (6.5-10.1) L Neutrophils (%) (Auto) 71.8 % (45.0-75.0) Lymphocytes (%) (Auto) 21.8 % (20.0-45.0) Monocytes (%) (Auto) 3.8 % (1.0-10.0) Eosinophils (%) (Auto) 1.4 % (0.0-3.0) Basophils (%) (Auto) 1.2 % (0.0-2.0) Prothrombin Time 11.4 SEC (9.30-11.50) Prothromb Time International Ratio 1.1 (0.9-1.1) Activated Partial Thromboplast Time 28 SEC (23-33) Sodium Level 136 mEQ/L (135-145) Potassium Level 3.7 mEQ/L (3.4-4.9) Chloride Level 102 mEQ/L (98-107) Carbon Dioxide Level 25 mEQ/L (20-30) Anion Gap 9 (5-15) Blood Urea Nitrogen 18 mg/dL (7-23) Creatinine 0.9 mg/dL (0.7-1.2) Estimat Glomerular Filtration Rate mL/min (>60) Glucose Level 89 mg/dL (74-106) Calcium Level 8.0 mg/dL (8.6-10.2) L Total Bilirubin 1.4 mg/dL (0.0-1.2) H Direct Bilirubin 0.2 mg/dL (0.1-0.3) Aspartate Amino Transf (AST/SGOT) 16 U/L (5-40) Alanine Aminotransferase (ALT/SGPT) 6 U/L (3-41) Alkaline Phosphatase 40 U/L (40-129) Total Protein 5.9 g/dL (6.6-8.7) L Albumin 3.3 g/dL (3.5-5.2) L Globulin 2.6 g/dL Albumin/Globulin Ratio 1.2 (1.0-2.7) Triglycerides Level 58 mg/dL (< 150) Cholesterol Level 127 mg/dL (< 200) LDL Cholesterol 78 mg/dL (60-99) HDL Cholesterol 37 mg/dL (> 60) Cholesterol/HDL Ratio 3.4 (3.3-4.4) Thyroid Stimulating Hormone (TSH) 0.572 uIU/mL (0.300-4.500) Current Medications Medications (Trade) Dose Ordered Sig/Percy Route PRN Reason Start Time Stop Time Status Last Admin Dose Admin Acetaminophen (Tylenol) 650 mg Q4H PRN ORAL fever 07/11/17 17:45 08/10/17 17:44 Al Hydroxide/Mg Hydroxide (Mylanta II) 30 ml Q6H PRN ORAL dyspepsia 07/11/17 17:45 08/10/17 17:44 Albuterol/ Ipratropium (DuoNeb 0.5-3(2.5)mg/3ml) 3 ml Q4H PRN HHN Shortness of Breath 07/11/17 17:45 07/16/17 17:44 Clonidine HCl (Catapres) 0.1 mg Q4H PRN ORAL For High Blood Pressure 07/11/17 17:45 08/10/17 17:44 Dextrose (Dextrose 50%) STAT PRN IV Hypoglycemia 07/11/17 17:45 08/10/17 17:44 Escitalopram Oxalate (Lexapro) 5 mg DAILY ORAL 07/12/17 09:00 08/11/17 08:59 07/12/17 09:07 Heparin Sodium (Porcine) (Heparin 5000 units/ml) 5,000 units EVERY 12 HOURS SUBQ 07/11/17 21:00 08/10/17 20:59 07/12/17 09:10 Lorazepam (Ativan 2mg/ml 1ml) 0.5 mg Q4H PRN IV For Anxiety 07/11/17 17:45 07/18/17 17:44 Morphine Sulfate (Morphine Sulfate) 1 mg Q4H PRN IVP For Pain 7-10 07/11/17 17:45 07/18/17 17:44 Nitroglycerin (Ntg) 0.4 mg Q5M X 3 DOSES PRN SL Prn Chest Pain 07/11/17 17:45 08/10/17 17:44 Ondansetron HCl (Zofran) 4 mg Q6H PRN IVP Nausea & Vomiting 07/11/17 17:45 08/10/17 17:44 Polyethylene Glycol (Miralax) 17 gm HSPRN PRN ORAL Constipation 07/11/17 17:45 08/10/17 17:44 Tamsulosin HCl (Flomax) 0.4 mg DAILY ORAL 07/12/17 09:00 08/11/17 08:59 07/12/17 09:07 Temazepam (Restoril) 15 mg HSPRN PRN ORAL Insomnia 07/11/17 17:45 07/18/17 17:44 Height (Feet): 5 Height (Inches): 9.00 Weight (Pounds): 180 General Appearance: well appearing, alert, appears stated age Neurologic: alert, oriented x3, responsive Psychiatric: depressed affect, anxious Psychiatric Behavior: cooperative Language/Speech: intact Orientation: person, disoriented Affect: appropriate Insight: poor Memory: remote Claudia Leija M.D. Jul 12, 2017 16:40
--- NOTE | 2017-07-12 16:55 | Cardiology Progress Note ---
Assessment/Plan Assessment/Plan [id number] Objective Last 24 Hour Vital Signs Date Time Temp Pulse Resp B/P (MAP) Pulse Ox O2 Delivery O2 Flow Rate FiO2 07/12/17 15:47 97.2 65 18 103/56 98 Room Air 07/12/17 12:00 75 07/12/17 11:54 97.0 71 18 110/54 96 Room Air 07/12/17 08:48 97.0 63 18 117/75 95 Room Air 07/12/17 07:49 68 18 Room Air 07/12/17 04:00 67 07/12/17 04:00 98.1 71 20 113/67 99 Room Air 07/12/17 00:34 67 18 Room Air 07/12/17 00:05 97.0 77 20 101/60 94 Room Air 07/12/17 00:00 72 07/11/17 22:13 98.0 69 20 107/62 95 Room Air 07/11/17 20:44 97.6 72 16 103/54 93 Room Air 07/11/17 20:14 97.6 72 16 103/54 93 Room Air Intake and Output 07/12/17 07/13/17 19:00 07:00 Intake Total 240 ml Balance 240 ml Intake Oral 240 ml # Voids 2 Laboratory Tests Test 07/12/17 08:35 White Blood Count 8.0 K/UL (4.8-10.8) Red Blood Count 4.93 M/UL (4.70-6.10) Hemoglobin 15.5 G/DL (14.2-18.0) Hematocrit 45.0 % (42.0-52.0) Mean Corpuscular Volume 91 FL (80-99) Mean Corpuscular Hemoglobin 31.4 PG (27.0-31.0) H Mean Corpuscular Hemoglobin Concent 34.4 G/DL (32.0-36.0) Red Cell Distribution Width 12.5 % (11.6-14.8) Platelet Count 186 K/UL (150-450) Mean Platelet Volume 4.5 FL (6.5-10.1) L Neutrophils (%) (Auto) 71.8 % (45.0-75.0) Lymphocytes (%) (Auto) 21.8 % (20.0-45.0) Monocytes (%) (Auto) 3.8 % (1.0-10.0) Eosinophils (%) (Auto) 1.4 % (0.0-3.0) Basophils (%) (Auto) 1.2 % (0.0-2.0) Prothrombin Time 11.4 SEC (9.30-11.50) Prothromb Time International Ratio 1.1 (0.9-1.1) Activated Partial Thromboplast Time 28 SEC (23-33) Sodium Level 136 mEQ/L (135-145) Potassium Level 3.7 mEQ/L (3.4-4.9) Chloride Level 102 mEQ/L (98-107) Carbon Dioxide Level 25 mEQ/L (20-30) Anion Gap 9 (5-15) Blood Urea Nitrogen 18 mg/dL (7-23) Creatinine 0.9 mg/dL (0.7-1.2) Estimat Glomerular Filtration Rate mL/min (>60) Glucose Level 89 mg/dL (74-106) Calcium Level 8.0 mg/dL (8.6-10.2) L Total Bilirubin 1.4 mg/dL (0.0-1.2) H Direct Bilirubin 0.2 mg/dL (0.1-0.3) Aspartate Amino Transf (AST/SGOT) 16 U/L (5-40) Alanine Aminotransferase (ALT/SGPT) 6 U/L (3-41) Alkaline Phosphatase 40 U/L (40-129) Total Protein 5.9 g/dL (6.6-8.7) L Albumin 3.3 g/dL (3.5-5.2) L Globulin 2.6 g/dL Albumin/Globulin Ratio 1.2 (1.0-2.7) Triglycerides Level 58 mg/dL (< 150) Cholesterol Level 127 mg/dL (< 200) LDL Cholesterol 78 mg/dL (60-99) HDL Cholesterol 37 mg/dL (> 60) Cholesterol/HDL Ratio 3.4 (3.3-4.4) Thyroid Stimulating Hormone (TSH) 0.572 uIU/mL (0.300-4.500) ANGELY SYKES Jul 12, 2017 16:55
--- NOTE | 2017-07-12 18:26 | Cardiology Report ---
APPROVED REPORT EXAM: Two-dimensional and M-mode echocardiogram with Doppler and color Doppler. INDICATION Left ventricular function M-Mode DIMENSIONS IVSd0.8 (0.7-1.1cm)Left Atrium (MM)4.6 (1.6-4.0cm) LVDd5.2 (3.5-5.6cm)Aortic Root3.3 (2.0-3.7cm) PWd1.0 (0.7-1.1cm)Aortic Cusp Exc.2.0 (1.5-2.0cm) LVDs3.2 (2.5-4.0cm) PWs1.0 cm Normal left ventricular chamber size, systolic function and wall motion. Left ventricular ejection fraction estimated to be 65-70%. No evidence of left ventricular hypertrophy. No evidence of pericardial fat or effusion. All other cardiac chamber sizes are within normal limits. Focal aortic valve sclerosis with adequate cusp excursion Thickened mitral valve leaflets with normal excursion. Mitral annulus and aortic root calcification. Pulmonic valve not well visualized. Normal tricuspid valve structure. IVC dilated at 2.5cm with physiological collapse. RA pressure of 10mmHg. A color flow and spectral Doppler study was performed and revealed: No aortic regurgitation. No mitral regurgitation. Left ventricular diastolic dysfunction grade 1. No tricuspid regurgitation.
[2017-07-12 20:00] VITALS: BP 109/56
--- NOTE | 2017-07-12 21:51 | Wound Care Consultation ---
Wound Assessment Wound Assessment #1: Wound Number: 1 Wound Present on Admission: Yes New Wound: No Status Change of Wound: No Wound Location Body Site Modif: mid Wound Location Body Site: other - sacrococcygeal Wound Type: pressure ulcer Corey Test: Does not Corey Pressure Ulcer Stage: deep tissue injury Wound Thickness: Full Thickness Wound Length: 6.0 Wound Width: 3.5 Wound Depth: utd Percent of Wound Purple/Maroon: 100 Wound Drainage Amount: None Wound Drainage Odor: None/Absent Tissue Surrounding Wound: Erythemic Wound General Appearance: Reddened - purple Wound Assessment #2: Wound Number: 2 Wound Present on Admission: Yes New Wound: No Status Change of Wound: No Wound Location Body Site Modif: right Wound Location Body Site: hand Wound Type: traumatic injury Corey Test: Does not Corey Wound Thickness: Partial Thickness Wound Length: 1.0 Wound Width: 1.0 Percent of Wound Bastian/Red: 100 Wound Drainage Description: Serosanguineous Wound Drainage Amount: Scant Wound Drainage Odor: None/Absent Tissue Surrounding Wound: Erythemic Wound General Appearance: Reddened Wound Comment #1 Sacrococcygeal DTI pressure ulcer #2 Skin tear with flap on right hand #3 Scratch blackwell on forehead Recommendation -Local wound care per protocol -Keep clean and dry -Turn and reposition -Optimize nutrition -Offload both heels -Heel protector on both heels -Low air loss mattress -Assess and f/u accordingly for any changes ADDIS LU RN Jul 12, 2017 21:51
[2017-07-13 00:02] VITALS: BP 122/77
--- NOTE | 2017-07-13 02:15 | Consultation ---
DATE OF CONSULTATION: 07/12/2017 CARDIOLOGY CONSULTATION CONSULTING PHYSICIAN: Adalberto Young M.D. REFERRING PHYSICIAN: Jeannette Rucker M.D. REASON FOR REFERRAL: Possible syncope. HISTORY OF PRESENT ILLNESS: This is an elderly gentleman, who tells me that he was actually walking on the street. He felt somewhat faint, he held onto the railing, he walked a few more steps, and he does not remember anything else that had happened. The book packer run sheets were reviewed and indicated that the patient was found lying on the sidewalk. No obvious sign of trauma or injury. The patient was able to stand with assistance, no shortness of breath, and the patient was able to talk although apparently he was incomprehensible, and no other significant abnormalities. His blood pressure was 152/80 with heart rate of 105 and blood sugar was 150 at that time when he was found by the paramedics. The paramedics brought the patient to the emergency room at [facility] where he was admitted and subsequently seen. The patient denies any chest pain at this time. No PND. No orthopnea. He uses one pillow. No dizziness or lightheadedness on standing. No heart pounding or palpitations. PAST MEDICAL HISTORY: Fairly unremarkable according to himself. He denies any medical problems. He denies any diabetes, high blood pressure, heart attack, cancer, stroke, hepatitis, tuberculosis, asthma, or emphysema. No ulcers, kidney problems, liver problems, thyroid problems, anemia, or arthritis. He does have history of enlarged prostate that was treated by a doctor. He denies HIV or AIDS. He denies any cardiac problems. ALLERGIES: Injectable penicillin. SOCIAL HISTORY: He smokes a little and drinks a little he states. He denies alcoholism and no drug use. REVIEW OF SYSTEMS: Gastrointestinal: He denies. Genitourinary: He denies. Pulmonary: He denies. Constitutional: He denies. PHYSICAL EXAMINATION: GENERAL: Shows him to be elderly gentleman, in no respiratory distress. He appears rather unkempt. NECK: Supple. No jugular venous distention. LUNGS: Show crackles at the bases bilaterally. CARDIAC: S1 is normal. S2 is normal. Regular rate and rhythm. No heaves, thrills, or gallops noted. ABDOMEN: Soft and nontender. Positive bowel sounds. EXTREMITIES: There is no clubbing, cyanosis, or edema. NEUROLOGIC: He is awake, responsive, communicative, and appears to be appropriately responsive. LABORATORY AND DIAGNOSTIC DATA: His telemetry shows sinus rhythm and his preliminary echocardiogram shows normal wall motion, no significant abnormalities. His EKG showed normal sinus rhythm, premature ventricular complexes are noted, this is with a lot of tremor artifact, otherwise unremarkable. His blood tests, white count of 8, hemoglobin 15.5, and platelet count of 186,000. Sodium 136, potassium 3.7, chloride 102, bicarbonate of 25, BUN of 18, creatinine 0.9, and glucose of 89. Calcium is 8.0. Albumin of 1.4. Troponin less than 0.4 on one occasion. ProBNP was only 247. Albumin of 3.3. LDL of 78, HDL of 37, and total cholesterol of 127. TSH of 0.57. INR 1.1 and PTT of 38. Urinalysis shows 0 to 2 RBCs and 2 to [address] scan of his head was performed and that showed no acute intracranial bleed, mass effect, or edema; mild atrophy, and nonspecific white matter hypoattenuation probably due to chronic small vessel diseases. His chest x-ray in the emergency room, mild interstitial edema. ASSESSMENT AND PLAN: 1. Possible syncope. 2. Benign prostatic hypertrophy. 3. Depression. 4. Metabolic encephalopathy. PLAN: Dr. Rucker, this patient was seen in cardiac consultation. He denies alcoholism although indications of alcohol abuse are noted in the patient's chart. I am not sure if the episode of fall was related to syncope and intoxication. There are no drug screens in the chart. I will order a set today. He should have orthostatic vitals checked. An echocardiogram will be reviewed. Remainder of his evaluation will be based on the above. He should receive some IVfluids. His lung examination although by x-ray shows some crackles, not likely cardiac in origin. Echocardiogram shows normal left ventricular systolic function. Adalberto Young M.D. DR: GINNY JOB#: [id number] CC:
[2017-07-13 04:00] VITALS: BP 102/65
[2017-07-13 07:06] LABS: BASOPHILS % (AUTO) 1.1 % (0.0-2.0); EOSINOPHILS % (AUTO) 2.7 % (0.0-3.0); LYMPHOCYTES % (AUTO) 19.9 % (20.0-45.0); MEAN CORPUSCULAR HEMOGLOBIN 30.8 PG (27.0-31.0); MEAN CORPUSCULAR HGB CONC 33.9 G/DL (32.0-36.0); MEAN CORPUSCULAR VOLUME 91 FL (80-99); MEAN PLATELET VOLUME 4.5 FL (6.5-10.1); MONOCYTES % (AUTO) 6.8 % (1.0-10.0); NEUTROPHILS % (AUTO) 69.6 % (45.0-75.0); PLATELET COUNT 175 K/UL (150-450); RED BLOOD COUNT 4.78 M/UL (4.70-6.10); RED CELL DISTRIBUTION WIDTH 12.3 % (11.6-14.8); WHITE BLOOD COUNT 6.5 K/UL (4.8-10.8)
[2017-07-13 07:24] LABS: TROPONIN I < 0.30 ng/mL (<=0.30)
[2017-07-13 07:38] LABS: ALANINE AMINOTRANSFERASE 7 U/L (3-41); ALBUMIN/GLOBULIN RATIO 1.4 (1.0-2.7); ANION GAP 9 (5-15); ASPARTATE AMINO TRANSFERASE 14 U/L (5-40); CALCIUM 8.2 mg/dL (8.6-10.2); CARBON DIOXIDE 27 mEQ/L (20-30); CHLORIDE 103 mEQ/L (98-107); CREATININE 0.9 mg/dL (0.7-1.2); HEMOLYSIS 1; POTASSIUM 3.8 mEQ/L (3.4-4.9); SODIUM 139 mEQ/L (135-145); TOTAL PROTEIN 5.3 g/dL (6.6-8.7)
[2017-07-13 08:42] VITALS: BP 109/66
[2017-07-13] MEDS: Tamsulosin 0.4mg cap ORAL SCH (09:20)
[2017-07-13] MEDS: Heparin 5000 units/ml inj SUBQ SCH ×2 (09:21→21:29)
--- NOTE | 2017-07-13 10:35 | Diagnostic Imaging Report ---
Indication: DYSPNEA Technique: One view of the chest Comparison: 07/11/2017 Findings: Irregular opacity in the right upper lung is more evident band previously. This is evident on the prior chest CT 08/12/2016, appears as an irregular area of pleural-based scarring. There is a new band of atelectasis at the left lateral lung base. The heart size is borderline enlarged. The aorta is tortuous. Impression: New left basilar atelectasis Irregular opacity right upper lung, probably an area of scarring demonstrated on prior chest CT Borderline cardiomegaly
--- NOTE | 2017-07-13 11:49 | General Progress Note ---
Assessment/Plan Status: stable Assessment/Plan cognitive impairment -cont current meds Subjective Constitutional: Reports: weakness Neurologic/Psychiatric: Reports: anxiety Allergies: Coded Allergies: PENICILLINS (Verified Allergy, Intermediate, Anaphylaxis, 07/12/17) Subjective the pt was in bed, calm watching tv. still not able to provide meaning full hx however follows command. sleep adequate. Objective Last 24 Hour Vital Signs Date Time Temp Pulse Resp B/P (MAP) Pulse Ox O2 Delivery O2 Flow Rate FiO2 07/13/17 08:42 97.5 79 18 109/66 96 Room Air 07/13/17 07:50 79 18 Room Air 21 07/13/17 07:41 87 07/13/17 04:00 75 07/13/17 04:00 97.0 70 18 102/65 94 Room Air 21 07/13/17 00:02 97.0 66 20 122/77 94 Room Air 21 07/12/17 23:15 59 07/12/17 20:00 97.2 70 18 109/56 93 Room Air 07/12/17 19:30 64 18 Room Air 21 07/12/17 19:10 71 07/12/17 17:49 75 07/12/17 15:47 97.2 65 18 103/56 98 Room Air 07/12/17 12:00 75 07/12/17 11:54 97.0 71 18 110/54 96 Room Air Intake and Output 07/13/17 07/14/17 19:00 07:00 Intake Total 120 ml Balance 120 ml Intake Oral 120 ml # Voids 1 Laboratory Tests 07/13/17 05:00: White Blood Count 6.5, Red Blood Count 4.78, Hemoglobin 14.7, Hematocrit 43.5, Mean Corpuscular Volume 91, Mean Corpuscular Hemoglobin 30.8, Mean Corpuscular Hemoglobin Concent 33.9, Red Cell Distribution Width 12.3, Platelet Count 175, Mean Platelet Volume 4.5L, Neutrophils (%) (Auto) 69.6, Lymphocytes (%) (Auto) 19.9L, Monocytes (%) (Auto) 6.8, Eosinophils (%) (Auto) 2.7, Basophils (%) (Auto ) 1.1, Sodium Level 139, Potassium Level 3.8, Chloride Level 103, Carbon Dioxide Level 27, Anion Gap 9, Blood Urea Nitrogen 17, Creatinine 0.9, Estimat Glomerular Filtration Rate , Glucose Level 91, Calcium Level 8.2L, Total Bilirubin 0.9, Aspartate Amino Transf (AST/SGOT) 14, Alanine Aminotransferase ( ALT/SGPT) 7, Alkaline Phosphatase 40, Troponin I < 0.30, Pro-B-Type Natriuretic Peptide 338, Total Protein 5.3L, Albumin 3.1L, Globulin 2.2, Albumin/Globulin Ratio 1.4 07/13/17 11:24: Urine Opiates Screen [Pending], Urine Barbiturates Screen [Pending], Phencyclidine (PCP) Screen [Pending], Urine Amphetamines Screen [Pending], Urine Benzodiazepines Screen [Pending], Urine Cocaine Screen [Pending], Urine Marijuana (THC) Screen [Pending] Height (Feet): 5 Height (Inches): 9.00 Weight (Pounds): 180 General Appearance: no apparent distress, alert, confused Neurologic: alert, responsive, depressed affect Claudia Leija M.D. Jul 13, 2017 11:49
[2017-07-13 12:00] VITALS: BP 120/70
--- NOTE | 2017-07-13 15:12 | Pulmonology Progress Note ---
Assessment/Plan Problems: (1) Acute encephalopathy (2) Depression (3) BPH (benign prostatic hyperplasia) (4) ETOH abuse Assessment/Plan doing better more awake echo and doppler of carotid artery noted drug screen noted psyc consult ntoed Subjective ROS Limited/Unobtainable: No Constitutional: Reports: no symptoms HEENT: Repors: no symptoms Respiratory: Reports: no symptoms Allergies: Coded Allergies: PENICILLINS (Verified Allergy, Intermediate, Anaphylaxis, 07/12/17) Objective Last 24 Hour Vital Signs Date Time Temp Pulse Resp B/P (MAP) Pulse Ox O2 Delivery O2 Flow Rate FiO2 07/13/17 12:10 83 07/13/17 12:05 80 07/13/17 12:00 71 07/13/17 12:00 97.2 71 20 120/70 96 Room Air 07/13/17 08:42 97.5 79 18 109/66 96 Room Air 07/13/17 07:50 79 18 Room Air 21 07/13/17 07:41 87 07/13/17 04:00 75 07/13/17 04:00 97.0 70 18 102/65 94 Room Air 21 07/13/17 00:02 97.0 66 20 122/77 94 Room Air 21 07/12/17 23:15 59 07/12/17 20:00 97.2 70 18 109/56 93 Room Air 07/12/17 19:30 64 18 Room Air 21 07/12/17 19:10 71 07/12/17 17:49 75 07/12/17 15:47 97.2 65 18 103/56 98 Room Air Intake and Output 07/13/17 07/14/17 19:00 07:00 Intake Total 120 ml Balance 120 ml Intake Oral 120 ml # Voids 1 General Appearance: WD/WN HEENT: normocephalic, atraumatic Respiratory/Chest: chest wall non-tender, lungs clear Cardiovascular: normal peripheral pulses, normal rate Abdomen: normal bowel sounds, soft, non tender Genitourinary: normal external genitalia Extremities: no cyanosis Skin: no rash, no ulcers Microbiology Date/Time Source Procedure Growth Status 07/11/17 15:25 Blood Blood Culture - Preliminary NO GROWTH AFTER 24 HOURS Resulted 07/11/17 15:00 Blood Blood Culture - Preliminary NO GROWTH AFTER 24 HOURS Resulted Laboratory Tests 07/13/17 05:00: White Blood Count 6.5, Red Blood Count 4.78, Hemoglobin 14.7, Hematocrit 43.5, Mean Corpuscular Volume 91, Mean Corpuscular Hemoglobin 30.8, Mean Corpuscular Hemoglobin Concent 33.9, Red Cell Distribution Width 12.3, Platelet Count 175, Mean Platelet Volume 4.5L, Neutrophils (%) (Auto) 69.6, Lymphocytes (%) (Auto) 19.9L, Monocytes (%) (Auto) 6.8, Eosinophils (%) (Auto) 2.7, Basophils (%) (Auto ) 1.1, Sodium Level 139, Potassium Level 3.8, Chloride Level 103, Carbon Dioxide Level 27, Anion Gap 9, Blood Urea Nitrogen 17, Creatinine 0.9, Estimat Glomerular Filtration Rate , Glucose Level 91, Calcium Level 8.2L, Total Bilirubin 0.9, Aspartate Amino Transf (AST/SGOT) 14, Alanine Aminotransferase ( ALT/SGPT) 7, Alkaline Phosphatase 40, Troponin I < 0.30, Pro-B-Type Natriuretic Peptide 338, Total Protein 5.3L, Albumin 3.1L, Globulin 2.2, Albumin/Globulin Ratio 1.4 07/13/17 11:24: Urine Opiates Screen Negative, Urine Barbiturates Screen Negative, Phencyclidine (PCP) Screen Negative, Urine Amphetamines Screen PositiveH, Urine Benzodiazepines Screen Negative, Urine Cocaine Screen PositiveH, Urine Marijuana (THC) Screen Negative Current Medications Medications (Trade) Dose Ordered Sig/Percy Route PRN Reason Start Time Stop Time Status Last Admin Dose Admin Acetaminophen (Tylenol) 650 mg Q4H PRN ORAL fever 07/11/17 17:45 08/10/17 17:44 Al Hydroxide/Mg Hydroxide (Mylanta II) 30 ml Q6H PRN ORAL dyspepsia 07/11/17 17:45 08/10/17 17:44 Albuterol/ Ipratropium (DuoNeb 0.5-3(2.5)mg/3ml) 3 ml Q4H PRN HHN Shortness of Breath 07/11/17 17:45 07/16/17 17:44 Clonidine HCl (Catapres) 0.1 mg Q4H PRN ORAL For High Blood Pressure 07/11/17 17:45 08/10/17 17:44 Dextrose (Dextrose 50%) STAT PRN IV Hypoglycemia 07/11/17 17:45 08/10/17 17:44 Escitalopram Oxalate (Lexapro) 10 mg DAILY ORAL 07/13/17 09:00 08/12/17 08:59 07/13/17 09:20 Heparin Sodium (Porcine) (Heparin 5000 units/ml) 5,000 units EVERY 12 HOURS SUBQ 07/11/17 21:00 08/10/17 20:59 07/13/17 09:21 Lorazepam (Ativan 2mg/ml 1ml) 0.5 mg Q4H PRN IV For Anxiety 07/11/17 17:45 07/18/17 17:44 Morphine Sulfate (Morphine Sulfate) 1 mg Q4H PRN IVP For Pain 7-07/11/17 17:45 07/18/17 17:44 Nicotine (Nicoderm) 1 patch Q24H TDERMAL 07/12/17 19:00 08/11/17 18:59 07/12/17 21:02 Nitroglycerin (Ntg) 0.4 mg Q5M X 3 DOSES PRN SL Prn Chest Pain 07/11/17 17:45 08/10/17 17:44 Ondansetron HCl (Zofran) 4 mg Q6H PRN IVP Nausea & Vomiting 07/11/17 17:45 08/10/17 17:44 Polyethylene Glycol (Miralax) 17 gm HSPRN PRN ORAL Constipation 07/11/17 17:45 08/10/17 17:44 Risperidone (RisperDAL) 1 mg BEDTIME ORAL 07/12/17 21:00 08/11/17 20:59 07/12/17 20:57 Tamsulosin HCl (Flomax) 0.4 mg DAILY ORAL 07/12/17 09:00 08/11/17 08:59 07/13/17 09:20 Temazepam (Restoril) 15 mg HSPRN PRN ORAL Insomnia 07/11/17 17:45 07/18/17 17:44 MONTSE SCHWARZ Jul 13, 2017 15:12
--- NOTE | 2017-07-13 15:49 | Cardiology Report ---
APPROVED REPORT EKG Measurement Heart [id number] Normal sinus rhythm Normal ECG
[2017-07-13 16:10] VITALS: BP 120/72
--- NOTE | 2017-07-13 16:32 | Cardiology Report ---
APPROVED REPORT EKG Measurement Heart [id number] IA [id number] Sinus tachycardia with frequent premature ventricular complexes Otherwise normal ECG
[2017-07-13] MEDS ORDERED: Mylanta II UD 30ml ORAL PRN (18:30)
[2017-07-13] MEDS ORDERED: Morphine Sulfate 2mg/ml Inj IVP PRN (18:30)
[2017-07-13] MEDS ORDERED: DuoNeb 0.5-3(2.5)mg/3ml neb HHN PRN (18:30)
[2017-07-13] MEDS ORDERED: LORazepam Inj 2mg/ml 1ml IV PRN (18:30)
[2017-07-13] MEDS ORDERED: Nitroglycerin Subl 0.4mg tab (Bottle Of 25) SL PRN (18:30)
[2017-07-13 20:00] VITALS: BP 96/58
[2017-07-14] VITALS: BP 106/66
[2017-07-14 04:00] VITALS: BP 100/59
[2017-07-14 08:15] VITALS: BP 91/65
[2017-07-14] MEDS ORDERED: Tamsulosin 0.4mg cap ORAL SCH (09:00)
[2017-07-14] MEDS: Heparin 5000 units/ml inj SUBQ SCH (09:50)
[2017-07-14 11:28] VITALS: BP 108/67
--- NOTE | 2017-07-14 14:43 | Diagnostic Imaging Report ---
APPROVED REPORT CPT Code: 07613 Vascular Symptoms Syncope Doppler Spectral Velocity Analysis RightLeft BILATERAL: CCA/BULB - Imaging reveals irregular, minimal plaque in both carotid bulbs. arteries. The Doppler spectral flow analysis is within normal limits throughout the internal and external carotid arteries. VERTEBRAL- The vertebral arteries were not well visualized.
[2017-07-14] MEDS ORDERED: NS 550ML IV ONE (15:09)
[2017-07-14 15:59] VITALS: BP 121/70
[2017-07-14] MEDS ORDERED: Miralax 17gm pkt ORAL PRN (18:30)
--- NOTE | 2017-07-14 18:58 | Pulmonology Progress Note ---
Assessment/Plan Problems: (1) Acute encephalopathy (2) Depression (3) BPH (benign prostatic hyperplasia) (4) ETOH abuse Assessment/Plan doing better more awake echo and doppler of carotid artery noted drug screen noted psyc consult ntoed dc home with close outpatinet f/ui Subjective ROS Limited/Unobtainable: No Constitutional: Reports: no symptoms HEENT: Repors: no symptoms Respiratory: Reports: no symptoms Cardiovascular: Reports: no symptoms Allergies: Coded Allergies: PENICILLINS (Verified Allergy, Intermediate, Anaphylaxis, 07/12/17) Objective Last 24 Hour Vital Signs Date Time Temp Pulse Resp B/P (MAP) Pulse Ox O2 Delivery O2 Flow Rate FiO2 07/14/17 15:59 97.9 68 18 121/70 92 Room Air 07/14/17 11:28 98.2 64 18 108/67 95 Room Air 07/14/17 09:35 62 65 68 07/14/17 08:23 78 16 Room Air 07/14/17 08:15 97.6 79 20 91/65 92 Room Air 07/14/17 04:00 97.7 66 18 100/59 95 Room Air 07/14/17 00:00 97.9 66 18 106/66 96 Room Air 07/13/17 20:00 98.0 67 18 96/58 95 Room Air General Appearance: WD/WN HEENT: normocephalic Respiratory/Chest: chest wall non-tender, lungs clear Cardiovascular: normal peripheral pulses, normal rate Abdomen: normal bowel sounds, soft, non tender Extremities: no cyanosis Skin: no lesions 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 Current Medications Medications (Trade) Dose Ordered Sig/Percy Route PRN Reason Start Time Stop Time Status Last Admin Dose Admin Acetaminophen (Tylenol) 650 mg Q4H PRN ORAL fever>100.5 07/13/17 18:30 08/10/17 18:29 Al Hydroxide/Mg Hydroxide (Mylanta II) 30 ml Q6H PRN ORAL dyspepsia 07/13/17 18:30 08/10/17 18:29 Albuterol/ Ipratropium (DuoNeb 0.5-3(2.5)mg/3ml) 3 ml Q4H PRN HHN Shortness of Breath 07/13/17 18:30 07/16/17 18:29 Clonidine HCl (Catapres) 0.1 mg Q4H PRN ORAL for sbp more than 160 07/13/17 18:30 08/10/17 18:29 Dextrose (Dextrose 50%) STAT PRN IV Hypoglycemia 07/14/17 18:30 08/10/17 18:29 Escitalopram Oxalate (Lexapro) 10 mg DAILY ORAL 07/14/17 09:00 08/12/17 08:59 07/14/17 09:46 Heparin Sodium (Porcine) (Heparin 5000 units/ml) 5,000 units EVERY 12 HOURS SUBQ 07/13/17 21:00 08/10/17 20:59 07/14/17 09:50 Lorazepam (Ativan 2mg/ml 1ml) 0.5 mg Q4H PRN IV For Anxiety 07/13/17 18:30 07/18/17 18:29 Morphine Sulfate (Morphine Sulfate) 1 mg Q4H PRN IVP For Pain 7-10 07/13/17 18:30 07/18/17 18:29 Nicotine (Nicoderm) 1 patch Q24H TDERMAL 07/13/17 21:00 08/11/17 20:59 07/13/17 21:25 Nitroglycerin (Ntg) 0.4 mg Q5M X 3 DOSES PRN SL Prn Chest Pain 07/13/17 18:30 08/10/17 18:29 Ondansetron HCl (Zofran) 4 mg Q6H PRN IVP Nausea & Vomiting 07/13/17 18:30 08/10/17 18:29 Polyethylene Glycol (Miralax) 17 gm HSPRN PRN ORAL Constipation 07/14/17 18:30 08/10/17 18:29 Risperidone (RisperDAL) 1 mg BEDTIME ORAL 07/13/17 21:00 08/11/17 20:59 07/13/17 21:25 Tamsulosin HCl (Flomax) 0.4 mg DAILY ORAL 07/14/17 09:00 08/11/17 08:59 07/14/17 09:46 Temazepam (Restoril) 15 mg HSPRN PRN ORAL Insomnia 07/14/17 21:00 07/18/17 20:59 MONTSE SCHWARZ Jul 14, 2017 18:58
--- NOTE | 2017-07-14 22:31 | General Progress Note ---
Assessment/Plan Status: stable, progressing Assessment/Plan cognitive impairment encephalopathy mdd -cont current meds Subjective Neurologic/Psychiatric: Reports: depressed, emotional problems Allergies: Coded Allergies: PENICILLINS (Verified Allergy, Intermediate, Anaphylaxis, 07/12/17) Subjective the pt was in bed, calm watching tv. less confused follows command. sleep adequate. Objective Last 24 Hour Vital Signs Date Time Temp Pulse Resp B/P (MAP) Pulse Ox O2 Delivery O2 Flow Rate FiO2 07/14/17 20:03 82 16 Room Air 07/14/17 15:59 97.9 68 18 121/70 92 Room Air 07/14/17 11:28 98.2 64 18 108/67 95 Room Air 07/14/17 09:35 62 65 68 07/14/17 08:23 78 16 Room Air 07/14/17 08:15 97.6 79 20 91/65 92 Room Air 07/14/17 04:00 97.7 66 18 100/59 95 Room Air 07/14/17 00:00 97.9 66 18 106/66 96 Room Air Height (Feet): 5 Height (Inches): 9.00 Weight (Pounds): 180 General Appearance: no apparent distress, alert, confused Neurologic: alert, responsive, depressed affect Claudia Leija M.D. Jul 14, 2017 22:31
--- NOTE | 2017-07-15 16:25 | Discharge Summary ---
Discharge Summary Hospital Course Date of Admission Jul 11, 2017 at 16:33 Date of Discharge Jul 14, 2017 at 20:25 Admitting Diagnosis SEPSIS HPI Nisa Rios is a 82 year old male who was admitted on Jul 11, 2017 at 16:33 for Sepsis Hospital Course [id number] Discharge Discharge Disposition Patient was discharged to Home with Home Health(06) Discharge Diagnoses: Chrystal Jasso NP Jul 15, 2017 16:25
--- NOTE | 2017-07-18 09:45 | Discharge Summary 2 SIG ---
DATE OF ADMISSION: 07/11/2017 DATE OF DISCHARGE: 07/14/2017 REGIONAL OPERATIONS DIRECTOR: Claudia Leija M.D. HISTORY OF PRESENT ILLNESS: The patient is an 82-year-old male with history of depression who was found altered on the streets with some myoclonic jerks. On evaluation at the ED, the patient was unable to answer questions. EKG done was in sinus. Chest x-ray showed infiltrates. Head CT showed no acute intracranial bleed, mass effect, or edema with mild atrophy. He was admitted to telemetry for acute encephalopathy. Urine drug screen done was positive for cocaine and amphetamine. He underwent psychiatric evaluation and was diagnosed to have major depressive disorder with a questionable history of alcoholism. He was given Lexapro 10 mg daily. The patient stated that he is somewhat faint. He tried to walk and did not remember anything that happened. [employer] run sheets were reviewed that indicated that the patient was lying on the sidewalk. There was no obvious sign of trauma or injury. The patient was able to stand with assistance and able to talk, although incomprehensible. The patient denied alcoholism although there are indications of alcohol abuse. Echocardiogram done showed EF of 65% to 70%, showed minimal plaques on the carotid arteries. The patient was more alert and awake. He was eventually discharged home with home health. He underwent physical therapy and occupational therapy. FINAL DIAGNOSES: 1. Acute encephalopathy. 2. Depression. 3. Benign prostatic hypertrophy. 4. ETOH abuse. 5. Cognitive impairment. 6. Acute metabolic encephalopathy. 7. Possible syncope. DISPOSITION: The patient was discharged home with home health. DISCHARGE MEDICATIONS: Refer to med list. FOLLOWUP: The patient was advised to follow up with PMD in a week. ACTIVITY: As tolerated. Jeannette Rucker M.D. I have been assigned to dictate discharge summary on this account and I was not involved in the patient's management. Chrystal Jasso N.P. DR: REJI JOB#: [id number] CC:
== END 2017-07-14 20:25 | disposition home health service (06) | DRG 72 ==
LOC: EDBD 14:51 → EMR 16:30 → 2E 16:33 → EDBEDREQ 18:10 → ENRESERV 20:12 → EDBEDREQ 20:20 → 2E 21:14 → 4E 07-13 18:12
DX: G93.41 Metabolic encephalopathy (principal); F32.9 Major depressive disorder, single episode, unspecified; F10.10 Alcohol abuse, uncomplicated; Z88.0 Allergy status to penicillin; N40.0 Benign prostatic hyperplasia without lower urinary tract symptoms; G31.84 Mild cognitive impairment of uncertain or unknown etiology; R55 Syncope and collapse
CPT/HCPCS: 36415; 70450; 71010; 80053; 80061; 80300; 81003; 82248; 82550; 83605; 83690; 83735; 83880; 84443; 84484; 85025; 85610; 85730; 87040; 90471; 90715; 93005; 93306; 93880; 94664; 99285